=== PATIENT | female | born 1940 | race African-American/Black ===

== ENCOUNTER 2019-08-14 04:52 | Inpatient (IN) | payer OTHER ==
[2019-08-14] VITALS (9 sets, daily range): BP systolic 119–153; BP diastolic 56–114
[~2019-08-14] VITALS: Ht 165.1 cm; Wt 88.1 kg
[2019-08-14] MEDS ORDERED: ONDANSETRON HCL 4MG/2ML INJ IV STA (05:23)
[2019-08-14] MEDS ORDERED: IPRATROPIUM BROMIDE (0.02%) 0.5MG/2.5ML NEB HHN STA (05:23)
[2019-08-14] MEDS ORDERED: METHYLPREDNISOLONE SOD SUCC 125 MG/2 ML VIAL IV STA (05:23)
[2019-08-14] MEDS: ALBUTEROL (0.083%) 2.5MG/3ML NEB HHN SCH ×2 (05:43→06:57)
[2019-08-14 05:59] LABS: BG BASE EXCESS -1.6 mmol/L (-2.0-2.0); BG CARBOXYHEMOGLOBIN 0.1 % (0.5-1.5); BG DEOXYHEMOGLOBIN 1.2 % (0.0-5.0); BG FRACTION INSPIRED OXYGEN 50; BG HCO3 ACT 24.6 mmol/L (22.0-26.0); BG OXYGEN SATURATION 98.8 % (92.0-98.5); BG OXYHEMOGLOBIN 98.7 % (94.0-97.0); BG PCO2 47.5 mmHg (35.0-45.0); BG PH 7.332 (7.350-7.450); BG PO2 164.7 mmHg (75.0-100.0); BG SAMPLE SITE LEFT BRACHIAL; BG TOTAL HEMOGLOBIN 12.4 g/dL (12.0-18.0); BG VENT MODE MASK - BIPAP
[2019-08-14 06:03] LABS: CHLORIDE 108 mEq/L (98-107)
[2019-08-14 06:09] LABS: BASOPHILS % 0.5 % (0.0-2.0); EOSINOPHILS % 5.2 % (0.0-5.0); HEMATOCRIT. 38.3 % (36.0-48.0); HEMOGLOBIN. 12.3 g/dL (12.0-16.0); LYMPHOCYTES % 21.5 % (20.0-50.0); MEAN CORPUSCULAR HEMOGLOBIN 29.8 pg (28.0-32.0); MEAN CORPUSCULAR VOLUME 92.9 fL (81.0-99.0); MEAN PLATELET VOLUME 8.5 fl (7.4-10.4); MONOCYTES % 4.1 % (2.0-8.0); NEUTROPHILS % 68.7 % (40.0-76.0); PLATELET 265 x1000/uL (130-400); RED BLOOD CELL COUNT 4.12 mill/uL (4.2-5.4); RED CELL DISTRIBUTION WIDTH 15.5 % (11.6-14.6)
[2019-08-14] MEDS ORDERED: ASPIRIN 325MG EC TABLET PO ONE (06:45)
[2019-08-14] MEDS ORDERED: LISI-604 MT (09:44)
[2019-08-14] MEDS ORDERED: ASPI-1393 MT (09:44)
[2019-08-14] MEDS ORDERED: IPRATROPIUM/ALBUTEROL 0.5-3(2.5)MG/3ML NEB NEB PRN (10:00)
[2019-08-14] MEDS ORDERED: GUAIFENESIN 200MG/10ML SUGAR FREE UDC PO PRN (10:00)
[2019-08-14] MEDS ORDERED: CLONIDINE 0.1MG TABLET PO PRN (10:00)
[2019-08-14] MEDS ORDERED: ONDANSETRON HCL 4MG/2ML INJ IV PRN (10:00)
[2019-08-14] MEDS ORDERED: MAGNESIUM/ALUMINUM HYDROXIDE/SIMETHICONE 30ML UDC PO PRN (10:00)
[2019-08-14] MEDS ORDERED: DIPHENHYDRAMINE 50MG/ML VIAL IV PRN (10:00)
[2019-08-14] MEDS ORDERED: FAMOTIDINE 20MG TABLET PO SCH (10:15)
[2019-08-14] MEDS: IPRATROPIUM/ALBUTEROL 0.5-3(2.5)MG/3ML NEB HHN SCH ×3 (10:31→20:43)
[2019-08-14] MEDS: LISINOPRIL 5MG TABLET PO SCH ×2 (11:59→21:56)
[2019-08-14] MEDS: DILTIAZEM HCL 30MG TABLET PO SCH ×2 (11:59→21:56)
[2019-08-14] MEDS: ENOXAPARIN 40MG/0.4ML SYR SUBCUT SCH (12:01)
[2019-08-14] MEDS ORDERED: METHYLPREDNISOLONE SOD SUCC 125 MG/2 ML VIAL IV SCH (14:00)
[2019-08-14] MEDS: SODIUM CHLORIDE 0.9% INJ 3ML FLUSH IVF SCH ×2 (17:00→21:57)
[2019-08-14] MEDS ORDERED: ATOR40TA70 MT (17:21)
[2019-08-14] MEDS ORDERED: BENZONATATE 100MG CAPSULE PO PRN (18:00)
[2019-08-14] MEDS: METHYLPREDNISOLONE SOD SUCC 40 MG/ML VIAL IV SCH (21:55)
[2019-08-15] VITALS (11 sets, daily range): BP systolic 99–130; BP diastolic 45–77
[2019-08-15] MEDS: IPRATROPIUM/ALBUTEROL 0.5-3(2.5)MG/3ML NEB HHN SCH ×3 (01:28→22:04)
[2019-08-15] MEDS: METHYLPREDNISOLONE SOD SUCC 40 MG/ML VIAL IV SCH ×2 (05:50→14:11)
[2019-08-15] MEDS: DILTIAZEM HCL 30MG TABLET PO SCH (05:50)
[2019-08-15] MEDS: SODIUM CHLORIDE 0.9% INJ 3ML FLUSH IVF SCH ×2 (05:51→13:10)
[2019-08-15 06:22] LABS: BASOPHILS % 0.3 % (0.0-2.0); HEMATOCRIT. 34.9 % (36.0-48.0); HEMOGLOBIN. 11.3 g/dL (12.0-16.0); LYMPHOCYTES % 9.1 % (20.0-50.0); MEAN CORPUSCULAR HEMOGLOBIN 29.7 pg (28.0-32.0); MEAN CORPUSCULAR VOLUME 92.1 fL (81.0-99.0); MONOCYTES % 2.3 % (2.0-8.0); NEUTROPHILS % 88.3 % (40.0-76.0); PLATELET 267 x1000/uL (130-400); RED BLOOD CELL COUNT 3.79 mill/uL (4.2-5.4); RED CELL DISTRIBUTION WIDTH 15.9 % (11.6-14.6)
[2019-08-15 06:51] LABS: CHLORIDE 107 mEq/L (98-107)
[2019-08-15 07:07] LABS: PHOSPHORUS 3.2 mg/dL (2.5-4.9)
[2019-08-15] MEDS ORDERED: FAMOTIDINE 20MG TABLET PO SCH (09:00)
[2019-08-15] MEDS ORDERED: LORATADINE 10MG TABLET PO SCH (09:00)
[2019-08-15] MEDS: LISINOPRIL 5MG TABLET PO SCH (09:20)
[2019-08-15] MEDS: ENOXAPARIN 40MG/0.4ML SYR SUBCUT SCH (11:48)
[2019-08-15] MEDS: DILTIAZEM HCL 60MG TABLET PO SCH ×2 (14:12→21:31)
[2019-08-15] MEDS: ACETAMINOPHEN 325MG TABLET PO PRN ×2 (17:44→21:31)
[2019-08-15] MEDS ORDERED: ATORVASTATIN CALCIUM 40MG TABLET PO SCH (21:00)
[2019-08-16] MEDS ORDERED: LISINOPRIL 5MG TABLET PO SCH (09:00)
== END 2019-08-15 22:45 | disposition short-term general hospital (02) | DRG 189 ==
LOC: ER 04:52 → 5EST 05:44 → EDBEDREQSVC 05:47 → EDBEDREQTM 05:47 → EDBEDREQ 05:47 → ENRESERV 07:19
PROVIDERS: ADMIT Internal Medicine; ATTEND Internal Medicine
PROC: 5A09357 Assistance with Respiratory Ventilation, Less than 24 Consecutive Hours, Continuous Positive Airway Pressure (ICD-10-PCS; principal; 2019-08-14)
DX: J96.02 Acute respiratory failure with hypercapnia (principal); I50.23 Acute on chronic systolic (congestive) heart failure; E87.2 Acidosis; J44.1 Chronic obstructive pulmonary disease with (acute) exacerbation; I11.0 Hypertensive heart disease with heart failure; J96.00 Acute respiratory failure, unspecified whether with hypoxia or hypercapnia; E78.00 Pure hypercholesterolemia, unspecified; J44.9 Chronic obstructive pulmonary disease, unspecified; D72.1 Eosinophilia; E78.5 Hyperlipidemia, unspecified; I27.20 Pulmonary hypertension, unspecified; I49.3 Ventricular premature depolarization; Z82.49 Family history of ischemic heart disease and other diseases of the circulatory system; Z87.891 Personal history of nicotine dependence; Z85.42 Personal history of malignant neoplasm of other parts of uterus; Z90.710 Acquired absence of both cervix and uterus
CPT/HCPCS: 36415; 36600; 71045; 80048; 82375; 82550; 82553; 82805; 83605; 83735; 83880; 84100; 84484; 93005; 93306; 94640; 94660; 96374; 96375; 99285; J1650; J2405; J2920; J2930; J7611; J7620

== ENCOUNTER 2025-03-01 11:49 | Emergency (ER) | payer OTHER ==
[~2025-03-01] VITALS: Ht 162.6 cm; Wt 59.0 kg
[~2025-03-01 11:49] MED LIST: ASPI-1497 MT; ATOR40TA70 MT; LISI20TA31 MT
[2025-03-01 11:52] VITALS: O2SAT 99
[2025-03-01 13:17] LABS: BASOPHILS % 0.2 % (0.0-2.0); EOSINOPHILS % 0.1 % (0.0-5.0); HEMATOCRIT. 41.2 % (36.0-48.0); HEMOGLOBIN. 13.1 g/dL (12.0-16.0); LYMPHOCYTES % 12.2 % (20.0-50.0); MEAN CORPUSCULAR HEMOGLOBIN 25.6 pg (28.0-32.0); MEAN CORPUSCULAR HGB CONC 31.7 g/dL (31.0-37.0); MEAN CORPUSCULAR VOLUME 80.7 fL (81.0-99.0); MEAN PLATELET VOLUME 9.1 fl (7.4-10.4); MONOCYTES % 5.8 % (2.0-8.0); NEUTROPHILS % 81.7 % (40.0-76.0); PLATELET 275 x1000/uL (130-400); WHITE BLOOD COUNT 13.6 x1000/uL (4.5-11.0)
[2025-03-01 13:19] LABS: CHLORIDE 102 mEq/L (98-107); POTASSIUM 3.2 mEq/L (3.5-5.1); SODIUM 139 mEq/L (136-145)
[2025-03-01 13:20] LABS: CARBON DIOXIDE 30 mEq/L (21-32)
[2025-03-01 13:21] LABS: CALCIUM 9.2 mg/dL (8.7-10.4)
[2025-03-01 13:25] LABS: CREATININE 1.2 mg/dL (0.6-1.0); GLUCOSE 109 mg/dL (70-105)
[2025-03-01 13:26] LABS: UREA NITROGEN BLOOD 23 mg/dL (9-23)
[2025-03-01 13:49] LABS: TROPONIN I HIGH SENSITIVITY 95 ng/L (3.0-34)
[2025-03-01 17:41] LABS: TROPONIN I HIGH SENSITIVITY 102 ng/L (3.0-34)
[2025-03-01 18:10] LABS: TROPONIN I HIGH SENSITIVITY 101 ng/L (3.0-34)
[2025-03-01 19:05] VITALS: BP 141/63; PULSE 67; RESP 18; TEMP 36.9; O2SAT 99
== END 2025-03-01 19:16 | disposition short-term general hospital (02) ==
LOC: ER 12:34 → EDBEDREQ 13:14 → ER 19:16
DX: R53.1 Weakness (principal); E11.9 Type 2 diabetes mellitus without complications; E78.00 Pure hypercholesterolemia, unspecified; I10 Essential (primary) hypertension; Z79.899 Other long term (current) drug therapy; Z88.5 Allergy status to narcotic agent
CPT/HCPCS: 36415; 71045; 80048; 83605; 83880; 84484; 85025; 93005; 99291